=== PATIENT | female | born 1995 | race Caucasian/White ===

== ENCOUNTER 2023-08-12 13:33 | Outpatient (CLI) | payer MEDICARE, OTHER ==
[~2023-08-12] VITALS: Ht 167.6 cm; Wt 69.1 kg
[2023-08-12 13:56] VITALS: BP 110/66
[2023-08-12] MEDS ORDERED: PRENTAB9 PO (14:11)
[2023-08-12] MEDS ORDERED: SYNT50TA PO (14:11)
[2023-08-12] MEDS ORDERED: LAMO100T80 PO (14:11)
[2023-08-12] MEDS ORDERED: FOLI400T13 PO (14:11)
[2023-08-12] MEDS ORDERED: HALO0.5H PO (14:11)
[2023-08-12] MEDS ORDERED: ALBU6.7H6 INH (14:12)
[2023-08-12] MEDS ORDERED: HOME MED LIST COMPLETE! XX SCH (14:15)
[2023-08-12 15:06] LABS: HEMOGLOBIN 9.8 g/dl (12.0-15.5); MEAN CORPUSCULAR HEMOGLOBIN 30.3 pg (27.0-33.0); MEAN CORPUSCULAR HGB CONC 32.7 g/dl (32.0-36.5); MEAN CORPUSCULAR VOLUME 92.9 fl (80.0-96.0); PLATELET COUNT, AUTOMATED 255 10^3/uL (150-450); RED BLOOD COUNT 3.23 10^6/uL (4.00-5.40); WHITE BLOOD COUNT 11.3 10^3/uL (4.0-10.0)
[2023-08-12 15:29] LABS: ALBUMIN 2.8 G/DL (3.2-5.2); ALKALINE PHOSPHATASE 82 U/L (46-116); ALT/SGPT 22 U/L (7.0-40); AST/SGOT 25 U/L (<34); BILIRUBIN,TOTAL 0.4 MG/DL (0.3-1.2); BLOOD UREA NITROGEN 5 MG/DL (9-23); CALCIUM LEVEL 8.8 MG/DL (8.5-10.1); CARBON DIOXIDE LEVEL 22 MMOL/L (20-31); CHLORIDE LEVEL 106 MMOL/L (98-107); CREATININE FOR GFR 0.45 MG/DL (0.55-1.30); GLOMERULAR FILTRATION RATE > 60.0 (>60); GLUCOSE, FASTING 79 MG/DL (60-100); POTASSIUM SERUM 3.8 MMOL/L (3.5-5.1); SODIUM LEVEL 135 MMOL/L (136-145)
[2023-08-12] MEDS ORDERED: VALT1TAB PO (16:21)
[2023-08-12 16:28] VITALS: BP 109/61
[2023-08-12] MEDS: ACETAMINOPHEN 500 MG TAB PO ONE (17:01)
== END 2023-08-12 18:05 | disposition home or self-care (01) ==
LOC: M LDO 13:33
PROVIDERS: ATTEND Obstetrics & Gynecology
DX: O26.893 Other specified pregnancy related conditions, third trimester (principal); R42 Dizziness and giddiness; O99.353 Diseases of the nervous system complicating pregnancy, third trimester; G40.909 Epilepsy, unspecified, not intractable, without status epilepticus; O99.343 Other mental disorders complicating pregnancy, third trimester; F31.9 Bipolar disorder, unspecified; F25.9 Schizoaffective disorder, unspecified; G43.909 Migraine, unspecified, not intractable, without status migrainosus; O99.283 Endocrine, nutritional and metabolic diseases complicating pregnancy, third trimester; E03.9 Hypothyroidism, unspecified; O99.513 Diseases of the respiratory system complicating pregnancy, third trimester; J45.909 Unspecified asthma, uncomplicated; Z3A.28 28 weeks gestation of pregnancy; Z87.890 Personal history of sex reassignment; Z79.899 Other long term (current) drug therapy
CPT/HCPCS: 36415; 59025; 76811; 76820; 80053; 80175; 85027; G0463

== ENCOUNTER 2023-09-01 14:47 | Outpatient (CLI) | payer MEDICARE, OTHER ==
[~2023-09-01] VITALS: Ht 167.6 cm; Wt 69.5 kg
[~2023-09-01 14:47] MED LIST: ALBU6.7H6 INH; ALBUTEROL SULFATE 2.5MG/0.5ML INH NEB SOLN INH PRN; EPINEPHrine INJ 1 MG/ML 1ML AMP IM PRN; FOLI400T13 PO; HALO0.5H PO; LAMO100T80 PO; NS 1,000 ML IV SCH; PRENTAB9 PO; SYNT50TA PO; VALT1TAB PO; diphenhydrAMINE 50MG/ML VIAL IV PRN; methylPREDNISolone 125MG 2ML VIAL IV PRN
[2023-09-01 15:10] VITALS: BP 120/58; O2SAT 97
[2023-09-01] MEDS: IRON SUCROSE 300 MG in NS 250 ML OVER 90 MIN. IV ONE (15:16)
[2023-09-01 16:40] VITALS: BP 124/65; O2SAT 100
[2023-09-01 17:17] VITALS: BP 118/5; O2SAT 99
== END 2023-09-01 17:20 ==
LOC: M INFU 14:47
PROVIDERS: ATTEND Obstetrics & Gynecology
DX: D64.9 Anemia, unspecified (principal)
CPT/HCPCS: 96365; 96366; J1756

== ENCOUNTER 2023-09-08 15:11 | Outpatient (CLI) | payer OTHER, MEDICARE ==
[~2023-09-08] VITALS: Ht 167.6 cm; Wt 69.5 kg
[2023-09-08 15:15] VITALS: BP 111/58; O2SAT 98
[2023-09-08] MEDS: IRON SUCROSE 300 MG in NS 250 ML OVER 90 MIN. IV ONE (15:28)
[2023-09-08 17:05] VITALS: BP 114/57; O2SAT 98
== END 2023-09-08 17:10 ==
LOC: M INFU 15:11
PROVIDERS: ATTEND Obstetrics & Gynecology
DX: D64.9 Anemia, unspecified (principal)
CPT/HCPCS: 96365; 96366; J1756

== ENCOUNTER 2023-09-15 15:00 | Outpatient (CLI) | payer MEDICARE, OTHER ==
[~2023-09-15] VITALS: Ht 167.6 cm; Wt 70.5 kg
[2023-09-15 15:00] VITALS: BP 114/56; O2SAT 98
[2023-09-15] MEDS: IRON SUCROSE 300 MG in NS 250 ML OVER 90 MIN. IV ONE (15:13)
[2023-09-15 16:55] VITALS: BP 124/60; O2SAT 98
== END 2023-09-15 16:55 | disposition home or self-care (01) ==
LOC: M INFU 15:00
PROVIDERS: ATTEND Obstetrics & Gynecology
DX: D64.9 Anemia, unspecified (principal)
CPT/HCPCS: 96365; J1756

== ENCOUNTER 2023-09-17 09:36 | Emergency (ER) | payer OTHER, MEDICARE ==
[~2023-09-17] VITALS: Ht 167.6 cm; Wt 70.7 kg
[~2023-09-17 09:36] MED LIST changes: -ALBUTEROL SULFATE 2.5MG/0.5ML INH NEB SOLN INH PRN; -EPINEPHrine INJ 1 MG/ML 1ML AMP IM PRN; -NS 1,000 ML IV SCH; -diphenhydrAMINE 50MG/ML VIAL IV PRN; -methylPREDNISolone 125MG 2ML VIAL IV PRN
[2023-09-17] MEDS ORDERED: ASPI81CH33 PO (09:44)
[2023-09-17] MEDS ORDERED: LAMO100T3 PO (09:51)
[2023-09-17] MEDS ORDERED: AMOX875T PO (11:39)
[2023-09-17 12:03] VITALS: BP 104/59; TEMP 97.9; O2SAT 100
== END 2023-09-17 12:04 | disposition home or self-care (01) ==
LOC: M ED 09:36
DX: O99.513 Diseases of the respiratory system complicating pregnancy, third trimester (principal); J01.90 Acute sinusitis, unspecified; Z3A.33 33 weeks gestation of pregnancy; J45.909 Unspecified asthma, uncomplicated; Z11.52 Encounter for screening for COVID-19

== ENCOUNTER → 2023-12-10 | Outpatient (REF) ==
[~2023-12-10] MED LIST changes: +AMOX875T PO; +ASPI81CH33 PO; +LAMO100T3 PO
[2023-12-13 16:32] LABS: HERPES ZOSTER, VARICELLA IgG 606.5 index
== END ==
LOC: M LAB 12:22
PROVIDERS: ATTEND Family Medicine
DX: Z01.89 Encounter for other specified special examinations (principal)